=== PATIENT | female | born 1990 | race Asian ===

== ENCOUNTER → 2021-02-25 | Outpatient (CLI) | payer OTHER ==
[2021-02-25 18:16] LABS: FREE T4 0.9 NG/DL (0.76-1.46); THYROID STIMULATING HORMONE 3.8 uIU/ML (0.358-3.740)
== END ==
LOC: M PLALAB 14:16
PROVIDERS: ATTEND Nurse Practitioner Family
DX: E06.3 Autoimmune thyroiditis (principal)

== ENCOUNTER → 2023-02-09 | Outpatient (REF) | payer OTHER ==
[2023-02-09 14:18] LABS: APPEARANCE, URINE HAZY (CLEAR); BACTERIA, URINE AUTO 1+ (NEGATIVE); BILIRUBIN, URINE AUTO NEGATIVE (NEGATIVE); BLOOD, URINE BLOOD 2+ (NEGATIVE); COLOR, URINE RED (YELLOW); GLUCOSE, URINE (UA) AUTO NEGATIVE (NEGATIVE); KETONE, URINE AUTO NEGATIVE (NEGATIVE); LEUKOCYTE ESTERASE, URINE AUTO 3+ (NEGATIVE); NITRITE, URINE AUTO NEGATIVE (NEGATIVE); PROTEIN, URINE AUTO 2+ mg/dL (NEGATIVE); RBC, URINE AUTO 11 /HPF (0-3); SPECIFIC GRAVITY URINE AUTO 1.003 (1.002-1.035); SQUAMOUS EPITHELIAL CELL UR AU 0 /HPF (0-6); UROBILINOGEN, URINE AUTO 0.2 mg/dL (0.0-2.0); WBC, URINE AUTO 68 /HPF (0-3)
== END ==
LOC: M LAB REF 12:22
PROVIDERS: ATTEND Physician Assistant
DX: N39.0 Urinary tract infection, site not specified (principal)

== ENCOUNTER → 2023-02-16 | Outpatient (CLI) | payer OTHER | LOC: M SOG 07:53 | PROVIDERS: ATTEND Physician Assistant | DX: M79.642 Pain in left hand (principal) ==

== ENCOUNTER 2023-05-12 09:41 | Day surgery (SDC) | payer OTHER ==
[~2023-05-12] VITALS: Ht 160 cm; Wt 70.1 kg
[~2023-05-12 09:41] MED LIST: LIDOCAINE 1% MDV 20ML VIAL XX ONE; LIDOCAINE W/EPINEPHRINE 1% 20ML VIAL XX ONE; SODIUM BICARBONATE 8.4% INJ 50MEQ 50ML VIAL XX ONE; ZOLO100T PO
[2023-05-12] MEDS ORDERED: BACITRACIN OINTMENT 30GM TUBE As Ordered ONE (10:46)
[2023-05-12 11:47] VITALS: BP 138/85; TEMP 97.5; O2SAT 100
[2023-05-12] MEDS ORDERED: TRAM50TA2 PO (11:52)
== END 2023-05-12 12:05 | disposition home or self-care (01) ==
LOC: M SDC 09:41
PROVIDERS: ATTEND Orthopaedic Surgery Hand Surgery
DX: D18.09 Hemangioma of other sites (principal)